=== PATIENT | female | born 1955 | race Two or more races ===

== ENCOUNTER 2023-07-11 05:15 | Day surgery (SDC) | payer OTHER ==
[2023-07-08 09:18] LABS: HEMATOCRIT 41.1 % (36.0-45.00); MEAN CELL VOLUME 91.2 fL (80.00-100.00); MEAN CORPUSCULAR HEMOGLOBIN 31.1 pg (27.00-32.0); MEAN CORPUSCULAR HGB CONC 34.1 g/dl (32.0-36.0); PLATELET COUNT 216 K/uL (150-450); RED BLOOD COUNT 4.51 M/uL (4.00-6.00); RED CELL DISTRIBUTION WIDTH 13.4 % (11.5-14.5)
[2023-07-08 09:35] LABS: PH,URINE 5.5 (5.0-8.0); URINE APPEARANCE Clear; URINE BILIRRUBIN Negative (NEGATIVE); URINE BLOOD Negative; URINE COLOR Yellow; URINE GLUCOSE Negative (NEGATIVE); URINE LEUKOCYTE Small; URINE NITRATE Positive; URINE PROTEIN Negative (NEGATIVE); URINE UROBILINOGEN 0.2 E.U./dl
[2023-07-08 09:39] LABS: INR < 0.93; PARTIAL THROMBOPLASTIN TIME 25.6 SECONDS (22.0-34.0); PROTHROMBIN TIME 9.5 SECONDS (9.0-11.5)
[2023-07-08 09:46] LABS: URINE EPITHELIAL CELLS 4.7 uL (0.0-38.8); URINE WBC 151.4 uL (0.0-23.2)
[2023-07-08 09:46] LABS: ALBUMIN 3.8 gm/dL (3.4-5.0); BILIRUBIN TOTAL 0.36 mg/dL (0.3-1.2); CALCIUM 10.2 mg/dL (8.5-10.1); CREATININE SERUM 0.82 mg/dL (0.55-1.02); GFR 69.75; GLOBULINA 3.2 G/DL (2.4-3.5); POTASSIUM 4.34 mEq/L (3.5-5.1)
[2023-07-08 09:53] LABS: URINE BACTERIA > 9821.5 uL (0.0-1933); URINE RBC 1.5 uL (0.0-20.8)
== END 2023-07-11 15:05 | disposition home or self-care (01) ==
LOC: CIR.AMB 05:15 → O/R 05:15 → SURG 05:15 → EDSTATUS 07:45 → OB/GYN 10:08 → O/R 10:08 → OB/GYN 11:06 → CIR.AMB 15:05 → O/R 15:05
PROVIDERS: ATTEND Obstetrics & Gynecology Gynecologic Oncology
DX: D27.1 Benign neoplasm of left ovary (principal); D39.12 Neoplasm of uncertain behavior of left ovary; Z20.822 Contact with and (suspected) exposure to COVID-19